=== PATIENT | female | born 1995 | race African-American/Black ===

== ENCOUNTER 2016-08-13 18:59 | Emergency (ER) ==
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
[2016-08-13 20:09] LABS: URINE SOURCE CLEAN CATCH
[2016-08-13 20:20] LABS: BILIRUBIN URINE NEGATIVE (NEGATIVE); BLOOD URINE 4+ (NEGATIVE); CLARITY VERY CLOUDY (CLEAR); COLOR YELLOW; GLUCOSE URINE NEGATIVE (NEGATIVE); LEUKOCYTES URINE 2+ (NEGATIVE); NITRITE URINE NEGATIVE (NEGATIVE); PROTEIN URINE 1+(30 mg/dL) mg/dL (NEGATIVE); UROBILINOGEN URINE NORMAL
[2016-08-13 20:28] LABS: URINE CAST NONE SEEN /LPF; URINE CRYSTAL NONE SEEN /HPF; URINE CULTURE PL NEEDED? YES; URINE EPITHELIAL CELLS <10 /HPF (<10); URINE RBC TNTC /HPF (<10); URINE WBC 20-40 /HPF (<10)
[2016-08-13] MEDS ORDERED: XYLOCAINE-MPF 1% INJ ONE (20:40)
[2016-08-13] MEDS ORDERED: ROCEPHIN IM ONE (20:40)
[2016-08-13 21:52] VITALS: BP 124/89
--- NOTE | 2016-08-14 08:45 | Diag Imaging Result Document ---
PROCEDURE NAME: ELBOW COMPLETE LEFT - 08/13/2016 LEFT ELBOW, 3 VIEWS: COMPARISON: None. FINDINGS: At the lateral epicondyle, there are some rounded ill-defined soft tissue calcification densities. This measures about 8 x 2 mm. The appearance is nonspecific. There is no visible donor site from the distal humerus. No joint effusion. No obvious fracture. IMPRESSION: Indeterminate soft tissue calcifications at the lateral epicondyle. This may indicate chronic calcific tendinitis here. Correlate clinically to see if this is the site of significant tenderness, in which case, this may actually represent a fracture, however, felt to be doubtful.
--- NOTE | 2016-08-14 10:03 | Diag Imaging Result Document ---
PROCEDURE NAME: SHOULDER-RIGHT - 08/13/2016 X-RAY RIGHT SHOULDER, 3 VIEWS: COMPARISON: None. FINDINGS: Bones are intact and normally aligned. Joint spaces and soft tissues are clear. IMPRESSION: Negative exam.
== END 2016-08-13 22:03 | disposition home or self-care (01) ==
LOC: P.ED 18:59
DX: N39.0 Urinary tract infection, site not specified (principal); S59.902A Unspecified injury of left elbow, initial encounter; M25.511 Pain in right shoulder; Y08.89XA Assault by other specified means, initial encounter; R30.0 Dysuria; R35.0 Frequency of micturition; Z87.440 Personal history of urinary (tract) infections; M79.1 Myalgia; N72 Inflammatory disease of cervix uteri; N89.8 Other specified noninflammatory disorders of vagina; S40.211A Abrasion of right shoulder, initial encounter; S50.811A Abrasion of right forearm, initial encounter
CPT/HCPCS: 81001; 81025; 87088; 87205; 87210; 87491; 87591; 96372; J0696